=== PATIENT | male | born 1990 | race African-American/Black ===

== ENCOUNTER 2024-12-29 03:45 | Emergency (ER) | payer OTHER ==
[~2024-12-29] VITALS: Ht 185.4 cm; Wt 77.0 kg
[2024-12-29 03:56] VITALS: TEMP 36.8; O2SAT 100
[2024-12-29] MEDS ORDERED: CEPH500C2 MT (04:08)
[2024-12-29 04:31] VITALS: BP 111/78; PULSE 74; RESP 18; O2SAT 100
[2024-12-29] MEDS: KETOROLAC 15MG/ML VIAL IM ONE (04:31)
== END 2024-12-29 04:35 | disposition home or self-care (01) ==
LOC: ER 03:45
DX: J34.0 Abscess, furuncle and carbuncle of nose (principal); R51.9 Headache, unspecified
CPT/HCPCS: 99283; 96372; J1885

== ENCOUNTER 2025-01-23 20:17 | Emergency (ER) | payer OTHER ==
[~2025-01-23 20:17] MED LIST: CEPH500C2 MT
[2025-01-23 21:04] VITALS: PULSE 68; RESP 16; O2SAT 100
== END 2025-01-23 21:30 | disposition left against medical advice (07) ==
LOC: ER 20:17
DX: R09.81 Nasal congestion (principal); Z53.21 Procedure and treatment not carried out due to patient leaving prior to being seen by health care provider

== ENCOUNTER 2025-01-23 21:40 | Inpatient (IN) | payer OTHER ==
[~2025-01-23] VITALS: Ht 182.9 cm; Wt 78.9 kg
[2025-01-23] MEDS ORDERED: VANCOMYCIN 1G PREMIX 200 ML IV ONE (22:15)
[2025-01-23] MEDS ORDERED: AMPICILLIN SOD/SULBACTAM NA 3 G in SODIUM CHLORIDE 0.9% 100 ML IV ONE (22:15)
[2025-01-23] MEDS: SODIUM CHLORIDE 0.9% 1,000 ML IV ONE (22:40)
[2025-01-23] MEDS: KETOROLAC 30MG/ML VIAL IV STA (22:44)
[2025-01-23] MEDS: AMPICILLIN SOD/SULBACTAM NA 3 G in SODIUM CHLORIDE 0.9% 100 ML IV NR (23:43)
[2025-01-23 23:44] LABS: BASOPHILS % 0.4 % (0.0-2.0); EOSINOPHILS % 0.9 % (0.0-5.0); HEMATOCRIT. 43.5 % (42.0-52.0); HEMOGLOBIN. 14.4 g/dL (14.0-18.0); LYMPHOCYTES % 11.7 % (20.0-50.0); MEAN CORPUSCULAR HEMOGLOBIN 29.9 pg (28.0-32.0); MEAN CORPUSCULAR HGB CONC 33.1 g/dL (31.0-37.0); MEAN CORPUSCULAR VOLUME 90.3 fL (80.0-94.0); MEAN PLATELET VOLUME 7.8 fl (7.4-10.4); MONOCYTES % 13.5 % (2.0-8.0); NEUTROPHILS % 73.5 % (40.0-76.0); PLATELET 244 x1000/uL (130-400); RED BLOOD CELL COUNT 4.82 mill/uL (4.7-6.1); RED CELL DISTRIBUTION WIDTH 13.5 % (11.6-14.6); WHITE BLOOD COUNT 11.7 x1000/uL (4.5-11.0)
[2025-01-23 23:51] LABS: INR 1.1; PROTHROMBIN TIME 11.4 sec (9.6-11.0)
[2025-01-24 00:02] LABS: CHLORIDE 99 mEq/L (98-107); POTASSIUM 3.9 mEq/L (3.5-5.1); SODIUM 137 mEq/L (136-145)
[2025-01-24 00:03] LABS: CARBON DIOXIDE 27 mEq/L (21-32)
[2025-01-24 00:04] LABS: CALCIUM 9.9 mg/dL (8.7-10.4)
[2025-01-24 00:08] LABS: GLUCOSE 111 mg/dL (70-105)
[2025-01-24 00:09] LABS: UREA NITROGEN BLOOD 11 mg/dL (9-23)
[2025-01-24 00:10] LABS: ALANINE AMINOTRANSFERASE 27 IU/L (10-49); ALBUMIN 4.5 g/dL (3.2-4.8); ASPARTATE AMINOTRANSFERASE 20 IU/L (<34)
[2025-01-24 00:11] LABS: BILIRUBIN DIRECT 0.2 mg/dL (<=3.0); BILIRUBIN TOTAL 0.7 mg/dL (0.1-1.0); PROTEIN TOTAL 8.1 g/dL (6.0-8.3)
[2025-01-24 01:00] VITALS: BP 115/63; PULSE 82; RESP 18; TEMP 37.1
[2025-01-24] MEDS ORDERED: CLONIDINE 0.1MG TABLET PO PRN (02:15)
[2025-01-24] MEDS ORDERED: MAGNESIUM/ALUMINUM HYDROXIDE/SIMETHICONE 30ML UDC PO PRN (02:15)
[2025-01-24] MEDS ORDERED: ACETAMINOPHEN 325MG TABLET PO PRN ×2 (02:15)
[2025-01-24] MEDS ORDERED: GUAIFENESIN 200MG/10ML SUGAR FREE UDC PO PRN (02:15)
[2025-01-24] MEDS ORDERED: ONDANSETRON HCL 4MG/2ML INJ IV PRN (02:15)
[2025-01-24] MEDS ORDERED: IPRATROPIUM/ALBUTEROL 0.5-3(2.5)MG/3ML NEB HHN PRN (02:15)
[2025-01-24] MEDS ORDERED: DOCUSATE SODIUM 100MG CAPSULE PO PRN (02:15)
[2025-01-24 03:05] VITALS: PULSE 82; RESP 18; TEMP 37.1; O2SAT 100
[2025-01-24] MEDS: AMPICILLIN SOD/SULBACTAM NA 3 G in SODIUM CHLORIDE 0.9% 100 ML IV SCH (06:16)
[2025-01-24] MEDS: KETOROLAC 15MG/ML VIAL IV PRN (07:12)
[2025-01-24 08:00] VITALS: BP 108/68; PULSE 55; RESP 19; TEMP 36.3; O2SAT 100
[2025-01-24] MEDS: FAMOTIDINE 20MG/2ML VIAL IV SCH (08:49)
[2025-01-24 12:00] VITALS: BP 110/59; PULSE 98; RESP 18; TEMP 37.7; O2SAT 100
[2025-01-24 12:54] LABS: *AMPHETAMINES SCREEN URINE PRESUMPTIVE POSITIVE (NEGATIVE); *BARBITURATES SCREEN URINE NEGATIVE (NEGATIVE); *BENZODIAZEPINES SCREEN URINE NEGATIVE (NEGATIVE); *COCAINE SCREEN URINE NEGATIVE (NEGATIVE); CANNABINOID URINE SCREEN PRESUMPTIVE POSITIVE (NEGATIVE); ECSTASY MDMA SCREEN URINE CONF.TEST INDICATED (NEGATIVE); METHADONE URINE SCREEN NEGATIVE (NEGATIVE); OPIATES URINE SCREEN NEGATIVE (NEGATIVE); PHENCYCLIDINE URINE SCREEN NEGATIVE (NEGATIVE)
[2025-01-24 16:00] VITALS: BP 116/63; PULSE 98; RESP 18; TEMP 37.1; O2SAT 98
[2025-01-24 20:00] VITALS: BP 126/50; PULSE 71; RESP 18; TEMP 36.2; O2SAT 100
[2025-01-24] MEDS ORDERED: IOHEXOL-300 100 ML BOTTLE ONE (22:43)
[2025-01-25] VITALS: BP 125/55; PULSE 72; RESP 18; TEMP 36.1; O2SAT 99
[2025-01-25 04:00] VITALS: BP 123/53; PULSE 75; RESP 18; TEMP 36.2; O2SAT 99
[2025-01-25 06:18] LABS: BASOPHILS % 0.6 % (0.0-2.0); EOSINOPHILS % 2.5 % (0.0-5.0); HEMATOCRIT. 40.9 % (42.0-52.0); HEMOGLOBIN. 13.8 g/dL (14.0-18.0); LYMPHOCYTES % 15.5 % (20.0-50.0); MEAN CORPUSCULAR HEMOGLOBIN 29.9 pg (28.0-32.0); MEAN CORPUSCULAR HGB CONC 33.7 g/dL (31.0-37.0); MEAN CORPUSCULAR VOLUME 88.8 fL (80.0-94.0); MEAN PLATELET VOLUME 8.2 fl (7.4-10.4); MONOCYTES % 13.3 % (2.0-8.0); NEUTROPHILS % 68.1 % (40.0-76.0); PLATELET 243 x1000/uL (130-400); RED BLOOD CELL COUNT 4.61 mill/uL (4.7-6.1); RED CELL DISTRIBUTION WIDTH 13.5 % (11.6-14.6); WHITE BLOOD COUNT 10.8 x1000/uL (4.5-11.0)
[2025-01-25 06:25] LABS: CARBON DIOXIDE 29 mEq/L (21-32); CHLORIDE 101 mEq/L (98-107); POTASSIUM 4.2 mEq/L (3.5-5.1); SODIUM 138 mEq/L (136-145)
[2025-01-25 06:26] LABS: CALCIUM 9.3 mg/dL (8.7-10.4)
[2025-01-25 06:31] LABS: CREATININE 0.8 mg/dL (0.6-1.3); GLUCOSE 110 mg/dL (70-105); TRIGLYCERIDE 50 mg/dL (0-150); UREA NITROGEN BLOOD 19 mg/dL (9-23)
[2025-01-25 06:32] LABS: CHOLESTEROL 166 mg/dL (<200); LDL CHOLESTEROL 82 mg/dL (5-100)
[2025-01-25 06:33] LABS: HDL CHOLESTEROL 61 mg/dL (>55); T4 FREE 1.09 ng/dL (0.89-1.76); THYROID STIMULATING HORMONE 1.41 uIU/mL (0.55-4.78)
[2025-01-25 08:00] VITALS: BP 119/59; PULSE 83; RESP 16; TEMP 36.9; O2SAT 99
[2025-01-25] MEDS ORDERED: NAPR-1486 PO (11:44)
[2025-01-25] MEDS ORDERED: CEPH500T MT (11:44)
[2025-01-25 11:58] VITALS: BP 121/61; PULSE 83; TEMP 98.5; O2SAT 99
[2025-01-25 12:00] VITALS: BP 110/55; PULSE 57; RESP 18; TEMP 36.4; O2SAT 100
[2025-01-25] MEDS: HYDROCODONE/ACETAMINOPHEN 5/325MG TABLET PO PRN (14:32)
[2025-01-25 16:00] VITALS: BP 130/67; PULSE 72; RESP 20; TEMP 36.3; O2SAT 97
== END 2025-01-25 18:01 | disposition home or self-care (01) | DRG 156 ==
LOC: ER 21:40 → 7EST 01-24 00:27 → EDBEDREQTM 01-24 00:31 → EDBEDREQ 01-24 00:31
PROVIDERS: ADMIT Internal Medicine; ATTEND Internal Medicine
DX: J34.0 Abscess, furuncle and carbuncle of nose (principal); K08.9 Disorder of teeth and supporting structures, unspecified; F19.10 Other psychoactive substance abuse, uncomplicated; F17.210 Nicotine dependence, cigarettes, uncomplicated; Z91.199 Patient's noncompliance with other medical treatment and regimen due to unspecified reason
CPT/HCPCS: 36415; 70487; 80048; 80061; 80076; 80305; 83605; 84145; 84439; 84443; 84481; 85025; 99291; J0295; J1885; J3490; J7030; J7050; Q9967